=== PATIENT | female | born 1995 | race Caucasian/White ===

== ENCOUNTER 2023-06-22 01:10 | Emergency (ER) | payer MEDICAID ==
[~2023-06-22] VITALS: Ht 160 cm; Wt 68.0 kg
[2023-06-22 01:10] VITALS: BP 130/67; PULSE 73; RESP 17; TEMP 97.8; O2SAT 98
[2023-06-22 08:12] VITALS: BP 113/65; PULSE 87; RESP 16; TEMP 97.8; O2SAT 98
== END 2023-06-22 08:13 | disposition home or self-care (01) ==
LOC: MED 01:10
DX: F10.129 Alcohol abuse with intoxication, unspecified (principal); Z98.890 Other specified postprocedural states; Y90.9 Presence of alcohol in blood, level not specified
CPT/HCPCS: 99283